=== PATIENT | male | born 1985 | race Caucasian/White ===

== ENCOUNTER 2016-12-06 10:16 | Emergency (ER) | payer BC, OTHER ==
[2016-12-06 10:19] VITALS: TEMP 97.4
[2016-12-06 10:38] VITALS: BP 111/61; PULSE 66
[2016-12-06] MEDS ORDERED: DIPH,PERTUS(ACELL)TETVAC-LF 0.5 ML VIAL IM ONE (11:02)
[2016-12-06] MEDS ORDERED: CIPROFLOXACIN HCL 500 MG TAB PO STA (11:02)
--- NOTE | 2016-12-06 11:05 | ED ---
General Adult HPI - General Chief complaint: Skin/Abscess/Foreign Body Stated complaint: STEPPED ON CHILD RAKE Time Seen by Provider: 12/06/16 10:32 Source: patient, RN notes reviewed, old records reviewed Mode of arrival: ambulatory Limitations: no limitations - History of Present Illness Initial comments: This is a 31-year-old male the ER for evaluation. Patient coming in for evaluation of foot injury. Patient stepped on a rake through shoe in the foot. Patient has minimal bleeding from site. For his left foot. No other injury - Related Data Previous Rx's Medication Instructions Recorded Ciprofloxacin HCl [Cipro] 500 mg PO Q12HR #20 tablet 12/06/16 Allergies Allergy/AdvReac Type Severity Reaction Status Date / Time amoxicillin Allergy Rash/Hives Verified 12/06/16 10:19 Review of Systems ROS Statement: Those systems with pertinent positive or pertinent negative responses have been documented in the HPI. ROS Other: All systems not noted in ROS Statement are negative. Past Medical History Past Medical History: No Reported History History of Any Multi-Drug Resistant Organisms: None Reported Past Surgical History: Hernia Repair Past Psychological History: No Psychological Hx Reported Smoking Status: Current every day smoker Past Alcohol Use History: Occasional Past Drug Use History: None Reported General Exam Limitations: no limitations General appearance: alert, in no apparent distress Head exam: Present: atraumatic, normocephalic, normal inspection Eye exam: Present: normal appearance, PERRL, EOMI. Absent: scleral icterus, conjunctival injection, periorbital swelling ENT exam: Present: normal exam, mucous membranes moist Neck exam: Present: normal inspection. Absent: tenderness, meningismus, lymphadenopathy Respiratory exam: Present: normal lung sounds bilaterally. Absent: respiratory distress, wheezes, rales, rhonchi, stridor Cardiovascular Exam: Present: regular rate, normal rhythm, normal heart sounds. Absent: systolic murmur, diastolic murmur, rubs, gallop, clicks GI/Abdominal exam: Present: soft, normal bowel sounds. Absent: distended, tenderness, guarding, rebound, rigid Extremities exam: Present: normal inspection, full ROM, normal capillary refill , other (Patient does have left foot puncture wound with piece of tissue still inside wound, minimal bleeding). Absent: tenderness, pedal edema, joint swelling, calf tenderness Back exam: Present: normal inspection Neurological exam: Present: alert, oriented X3, CN II-XII intact Psychiatric exam: Present: normal affect, normal mood Skin exam: Present: warm, dry, intact, normal color. 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 She'll be covered for possible pseudomonas as well as bacterial coverage. Wound is cleaned extensively irrigated. Patient can be discharged home Disposition Clinical Impression: Puncture wound of left foot Disposition: HOME SELF-CARE Condition: Good Instructions: Puncture Wound (ED) Prescriptions: Ciprofloxacin HCl [Cipro] 500 mg PO Q12HR #20 tablet Referrals: Hansel Walters MD [Primary Care Provider] - 1-2 days
[2016-12-06 11:29] VITALS: RESP 16
== END 2016-12-06 11:29 | disposition home or self-care (01) ==
LOC: EC 10:16
DX: S91.342A Puncture wound with foreign body, left foot, initial encounter (principal); F17.200 Nicotine dependence, unspecified, uncomplicated; Z23 Encounter for immunization; Z88.0 Allergy status to penicillin; W27.1XXA Contact with garden tool, initial encounter
CPT/HCPCS: 90471; 90715; 99283

== ENCOUNTER → 2018-06-03 | Outpatient (CLI) | payer OTHER ==
--- NOTE | 2018-06-03 17:09 | XR ---
EXAMINATION TYPE: XR shoulder complete RT DATE OF EXAM: 06/03/2018 COMPARISON: NONE HISTORY: Pain TECHNIQUE: Shoulder examined in 3 views FINDINGS: The humeral head articulates with the glenoid. The acromio-clavicular junction is normal. No acute fractures or dislocations are evident. A follow up study can be performed 7-10 days from acute trauma for continued pain. IMPRESSION: 1. Normal right Shoulder
== END | disposition home or self-care (01) ==
LOC: RADXRMAIN 16:17
PROVIDERS: ATTEND Family Medicine
DX: M25.511 Pain in right shoulder (principal)

== ENCOUNTER 2018-11-01 07:40 | Day surgery (SDC) | payer OTHER ==
[2018-10-27 15:49] VITALS: BMI 33.5
[~2018-11-01 07:40] MED LIST: LACTATED RINGERS 1,000 ML IV SCH
[2018-11-01 07:53] VITALS: TEMP 97.8
[2018-11-01] MEDS ORDERED: LACTATED RINGERS 1,000 ML IV ONE (07:53)
[2018-11-01] MEDS ORDERED: LIDOCAINE 1% 20 ML VIAL (10MG/ML) FOR IV START INTRADERMA ONE (07:53)
[2018-11-01] MEDS ORDERED: LIDOCAINE 1% INJ 10MG/ML (20 ML MDV) ONE (08:39)
[2018-11-01] MEDS ORDERED: PROPOFOL 10 MG/ML 20 ML VIAL IV ONE (08:39)
--- NOTE | 2018-11-01 08:44 | P.GSHP ---
History of Present Illness H&P Date: 11/01/18 Chief Complaint: Diarrhea This is a 32-year-old male has today for colonoscopy. Patient issues with diarrhea. Past Medical History Past Medical History: No Reported History Additional Past Medical History / Comment(s): HAS BEEN HAVING LOOSE STOOLS History of Any Multi-Drug Resistant Organisms: None Reported Past Surgical History: Hernia Repair Past Anesthesia/Blood Transfusion Reactions: No Reported Reaction Smoking Status: Current some day smoker - Past Family History Mother Family Medical History: No Reported History Medications and Allergies Home Medications Medication Instructions Recorded Confirmed Type No Known Home Medications 10/27/18 10/27/18 History Allergies Allergy/AdvReac Type Severity Reaction Status Date / Time amoxicillin Allergy Rash/Hives Verified 10/27/18 15:46 Surgical - Exam Vital Signs Temp Pulse Resp BP Pulse Ox 97.8 F 70 18 169/88 98 11/01/18 07:51 11/01/18 07:51 11/01/18 07:51 11/01/18 07:51 11/01/18 07:51 - General well developed, well nourished, no distress - Eyes PERRL - ENT normal pinna - Neck no masses - Respiratory normal expansion - Cardiovascular Rhythm: regular - Abdomen Abdomen: soft, non tender Assessment and Plan Assessment: Diarrhea. We'll perform colonoscopy.
--- NOTE | 2018-11-01 08:55 | P.OP ---
Date of Procedure: 11/01/18 Preoperative Diagnosis: Diarrhea Postoperative Diagnosis: Colonoscopy biopsy pending Procedure(s) Performed: Colonoscopy Anesthesia: COLE Surgeon: Clovis Muñiz Pathology: other (Sigmoid) Condition: stable Disposition: PACU Description of Procedure: The patient's placed on the endoscopy table in the lateral position. He received IV sedation. Digital rectal exam was performed which revealed no abnormalities. The prostate was symmetric without nodules. The possible colonoscope was then placed patient anus passed throughout the entire colon. The ileocecal valve was visualized. The cecum, ascending and transverse colon appeared normal. The descending and sigmoid colon appeared normal. A random biopsy; performed. Scope was then brought back the rectum and this appeared normal. Scope was withdrawn for patient.
[2018-11-01 09:18] VITALS: BP 131/72; PULSE 72; RESP 16
== END 2018-11-01 09:49 | disposition home or self-care (01) ==
LOC: ORWHC2ENDO 07:40
PROVIDERS: ATTEND Surgery
DX: R19.7 Diarrhea, unspecified (principal); F17.200 Nicotine dependence, unspecified, uncomplicated; Z98.890 Other specified postprocedural states; Z88.1 Allergy status to other antibiotic agents
CPT/HCPCS: 88305; 45380; J2001; J2704

== ENCOUNTER 2019-12-11 11:08 | Emergency (ER) | payer OTHER ==
[2019-12-11 11:28] VITALS: BP 160/97; PULSE 71; RESP 16; TEMP 98
[2019-12-11] MEDS ORDERED: ACET/COD 300 MG/30 MG STARTER PACK 6 TAB BTL PO STA (11:41)
--- NOTE | 2019-12-11 11:44 | ED ---
General Adult HPI - General Chief complaint: Dental/Oral Stated complaint: Tooth Ache Time Seen by Provider: 12/11/19 11:29 Source: patient, RN notes reviewed Mode of arrival: wheelchair Limitations: no limitations - History of Present Illness Initial comments: 34-year-old male presents to the emergency department for a chief complaint of dental pain. Patient states that he has had dental pain on and off for the past couple months. States that it worsened in the past few days. States it is the point that Motrin and Tylenol are not helping. Patient states he called his dentist but because of this pandemic they are not able to see him. He denies fevers. He denies neck stiffness. Denies difficulty opening his mouth. Face or neck. Patient does admit that hot and cold hurt his tooth.Patient has no other complaints at this time including shortness of breath, chest pain, abdominal pain, nausea or vomiting, headache, or visual changes. - Related Data Previous Rx's Medication Instructions Recorded Clindamycin [Cleocin] 450 mg PO Q8H 7 Days #63 cap 12/11/19 Allergies Allergy/AdvReac Type Severity Reaction Status Date / Time amoxicillin Allergy Rash/Hives Verified 12/11/19 11:27 Review of Systems ROS Statement: Those systems with pertinent positive or pertinent negative responses have been documented in the HPI. ROS Other: All systems not noted in ROS Statement are negative. Past Medical History Past Medical History: No Reported History Additional Past Medical History / Comment(s): HAS BEEN HAVING LOOSE STOOLS History of Any Multi-Drug Resistant Organisms: None Reported Past Surgical History: Hernia Repair Past Anesthesia/Blood Transfusion Reactions: No Reported Reaction Past Psychological History: No Psychological Hx Reported Smoking Status: Current some day smoker - Past Family History Mother Family Medical History: No Reported History General Exam Limitations: no limitations General appearance: alert, in no apparent distress Head exam: Present: atraumatic, normocephalic, normal inspection Eye exam: Present: normal appearance, PERRL, EOMI. Absent: scleral icterus, conjunctival injection, periorbital swelling ENT exam: Present: normal exam, mucous membranes moist. Absent: normal oropharynx (Patient has poor dentition noted. Complaining of pain to tooth 29. No significant tenderness. No abscess. No sublingual edema. No edema of the face or neck.) Neck exam: Present: normal inspection, full ROM. Absent: tenderness, meningismus, lymphadenopathy Respiratory exam: Present: normal lung sounds bilaterally. Absent: respiratory distress, wheezes, rales, rhonchi, stridor Cardiovascular Exam: Present: regular rate, normal rhythm, normal heart sounds. Absent: systolic murmur, diastolic murmur, rubs, gallop, clicks Course Vital Signs 12/11/19 11:23 Temperature 98.0 F Pulse Rate 71 Respiratory 16 Rate Blood Pressure 160/97 O2 Sat by Pulse 95 Oximetry Medical Decision Making - Medical Decision Making Patient was started on clindamycin and given penicillin ALLERGY. He was given Tylenol 3 in addition to a perception for Motrin. I discussed appropriate use of these. Patient will not drive or operate machinery while taking Tylenol 3. He will return for any worsening symptoms and will otherwise follow up with his dentist. Disposition Clinical Impression: Pain, dental Disposition: HOME SELF-CARE Condition: Good Instructions (If sedation given, give patient instructions): Toothache (ED) Additional Instructions: Please take antibiotic as directed. This was sent to [facility] pharmacy. Please follow-up with your dentist as soon as possible. Take Motrin for pain. If pain is severe take Tylenol 3. Do not drive or operate machinery while taking Tylenol 3. Return to the emergency department for any worsening symptoms. Prescriptions: Clindamycin [Cleocin] 450 mg PO Q8H 7 Days #63 cap Is patient prescribed a controlled substance at d/c from ED?: No Referrals: Hansel Walters MD [Primary Care Provider] - 1-2 days Time of Disposition: 11:42
== END 2019-12-11 11:46 | disposition home or self-care (01) ==
LOC: EC 11:08
DX: K08.89 Other specified disorders of teeth and supporting structures (principal); F17.200 Nicotine dependence, unspecified, uncomplicated; Z88.0 Allergy status to penicillin
CPT/HCPCS: 99282

== ENCOUNTER → 2020-01-31 | Outpatient (CLI) | payer OTHER ==
[2020-01-31 15:44] LABS: Basophils # (A) 0.1 k/uL (0-0.2); Basophils % (A) 1 %; Eosinophils # (A) 0.4 k/uL (0-0.7); Eosinophils % (A) 4 %; HCT 45.7 % (39.0-53.0); HGB 14.9 gm/dL (13.0-17.5); Lymphocytes # (A) 2.1 k/uL (1.0-4.8); Lymphocytes % (A) 23 %; MCH 30.2 pg (25.0-35.0); MCHC 32.5 g/dL (31.0-37.0); MCV 92.9 fL (80.0-100.0); Mean Platelet Volume 7.2; Monocytes # (A) 0.6 k/uL (0-1.0); Monocytes % (A) 6 %; Neutrophils # (A) 6.1 k/uL (1.3-7.7); Neutrophils % (A) 65 %; Platelet Count 255 k/uL (150-450); RBC 4.92 m/uL (4.30-5.90); RDW 12.9 % (11.5-15.5); WBC 9.3 k/uL (3.8-10.6)
== END | disposition home or self-care (01) ==
LOC: LABPAT 14:47
PROVIDERS: ATTEND Surgery
DX: Z01.818 Encounter for other preprocedural examination (principal); K42.0 Umbilical hernia with obstruction, without gangrene
CPT/HCPCS: 36415; 85025

== ENCOUNTER 2020-02-08 06:30 | Day surgery (SDC) | payer OTHER ==
[2020-02-06 12:31] VITALS: BMI 33.9
[~2020-02-08 06:30] MED LIST changes: +DEXAMETHASONE SOD PHOSPHATE 10 MG/ML 1 ML VIAL IV ONE; +HEPARIN SODIUM,PORCINE 5,000 UNIT/ML 1 ML VIAL SQ ONE; +HYDROmorphone 0.5 MG/0.5 ML SYRINGE IVP PRN; +LIDOCAINE 1% (10MG/ML) FOR IV START INTRADERMA PRN; +MIDAZOLAM 2 MG/2 ML VIAL IV PRN; +ONDANSETRON 4 MG/2 ML VIAL IVP ONE; +fentaNYL (PF) 50 MCG/ML 2 ML AMP IVP PRN
[2020-02-08] MEDS ORDERED: HEPARIN SODIUM,PORCINE 5,000 UNIT/ML 1 ML VIAL ONE (06:50)
[2020-02-08] MEDS ORDERED: ONDANSETRON 4 MG/2 ML VIAL ONE (06:50)
[2020-02-08] MEDS ORDERED: KETAMINE 10 MG/ML 20 ML VIAL ONE (07:55)
[2020-02-08] MEDS ORDERED: ROCURONIUM 10 MG/ML (5 ML VIAL) IV ONE (07:55)
[2020-02-08] MEDS ORDERED: fentaNYL (PF) 50 MCG/ML 2 ML AMP ONE (07:55)
[2020-02-08] MEDS ORDERED: HYDROmorphone (PF) 1 MG/ML ONE (07:55)
[2020-02-08] MEDS ORDERED: MIDAZOLAM 2 MG/2 ML VIAL ONE (07:55)
[2020-02-08] MEDS ORDERED: LIDOCAINE 1% INJ 10MG/ML (20 ML MDV) ONE (07:55)
[2020-02-08] MEDS ORDERED: PROPOFOL 10 MG/ML 20 ML VIAL IV ONE (07:55)
[2020-02-08] MEDS ORDERED: SUCCINYLCHOLINE CHLORIDE 100 MG/5 ML SYR IV ONE (07:55)
[2020-02-08] MEDS ORDERED: NEOSTIGMINE 1 MG/ML 10 ML VIAL ONE (07:55)
[2020-02-08] MEDS ORDERED: GLYCOPYRROLATE 0.2 MG/ML 2 ML VIAL ONE (07:55)
[2020-02-08] MEDS ORDERED: KETOROLAC 30 MG/ML 1 ML VIAL ONE (07:55)
[2020-02-08] MEDS ORDERED: BUPIVACAIN-EPI 0.25%-1:200,000 30 ML VIAL SQ ONE ×2 (08:18)
--- NOTE | 2020-02-08 08:59 | P.GSHP ---
History of Present Illness H&P Date: 02/08/20 Chief Complaint: Incarcerated umbilical hernia This a 34-year-old male who presents today for laparoscopic robotic-assisted repair of incarcerated we'll hernia. Patient will be tender masses umbilicus. Past Medical History Past Medical History: No Reported History Additional Past Medical History / Comment(s): IBS/DIARRHEA, OCCASIONAL BLOOD IN STOOL, UMBILICAL HERNIA. History of Any Multi-Drug Resistant Organisms: None Reported Past Surgical History: Hernia Repair Additional Past Surgical History / Comment(s): HERNIA REPAIR (CHILD-1991) Past Anesthesia/Blood Transfusion Reactions: No Reported Reaction Past Psychological History: No Psychological Hx Reported Past Alcohol Use History: Occasional Additional Past Alcohol Use History / Comment(s): SMOKES MAYBE 1-2 CIGARETTES MAYBE ONCE A MONTH, HX OF VAPING ALSO. Past Drug Use History: None Reported - Past Family History Mother Family Medical History: No Reported History Medications and Allergies Home Medications Medication Instructions Recorded Confirmed Type Ibuprofen [Advil] 400 mg PO ONCE PRN 02/06/20 02/08/20 History Allergies Allergy/AdvReac Type Severity Reaction Status Date / Time amoxicillin Allergy Rash/Hives Verified 02/08/20 06:54 Surgical - Exam Vital Signs Temp Pulse Resp BP Pulse Ox 97.8 F 73 18 151/77 96 02/08/20 06:56 02/08/20 06:56 02/08/20 06:56 02/08/20 06:56 02/08/20 06:56 - General well nourished, no distress - Eyes PERRL - ENT normal pinna - Neck no masses - Respiratory normal expansion - Cardiovascular Rhythm: regular - Abdomen Abdomen: soft, non tender Hernia: umbilical (3 cm umbilical hernia) Assessment and Plan Assessment: Impression buckle hernia. We'll perform laparoscopic robotic-assisted repair.
--- NOTE | 2020-02-08 09:01 | P.OP ---
Date of Procedure: 02/08/20 Preoperative Diagnosis: Incarcerated umbilical hernia Postoperative Diagnosis: Incarcerated umbilical hernia Procedure(s) Performed: Laparoscopic robotic repair of incarcerated umbilical hernia Partial omentectomy Anesthesia: CLOE Surgeon: Clovis Muñiz Estimated Blood Loss (ml): 10 Pathology: none sent Condition: stable Disposition: PACU Description of Procedure: The patient was placed on the operating table in the supine position. He received general anesthesia. His abdomen was prepped and draped usual fashion. Using a 5 mm optical trocar under direct visualization the peritoneal cavity was entered in the left upper quadrant. The abdomen was then insufflated. The laparoscope was placed back into the perineal cavity. Next a 8 mm robotic trocar was placed in the left lower quadrant and a 12 mm robotic trocar was placed in the left lateral position. The original 5 mm trocar was exchanged for a 8 mm robotic trocar. The patient's placed in the left side up position. And the patient was undocked the robot. The umbilical hernia was visualized. Using hook cautery the peritoneum over the umbilical hernia was excised. There was a small piece of incarcerated omentum. This was dissected free and then transected with the hook cautery. The small piece of omentum was removed and sent for disposal. The fascial opening was repaired using 0V LOC suture. Next a piece of 11 cm round ventral light ST mesh was placed into the. Cavity and secured with 2 OV lock suture. The patient was undocked the robot. The needles were retrieved. The fascia of the 12 mm trocar site was closed with 0 Ethibond suture. Skin was closed interrupted 3-0 Monocryl suture. Dermabond dressings was applied. Patient top procedure well and was sent to recovery room stable condition.
[2020-02-08 09:08] VITALS: TEMP 98.9
[2020-02-08 10:37] VITALS: BP 130/78; PULSE 75; RESP 16
== END 2020-02-08 10:51 | disposition home or self-care (01) ==
LOC: OR 06:30
PROVIDERS: ATTEND Surgery
DX: K42.0 Umbilical hernia with obstruction, without gangrene (principal); K58.0 Irritable bowel syndrome with diarrhea; F17.210 Nicotine dependence, cigarettes, uncomplicated; K21.9 Gastro-esophageal reflux disease without esophagitis; Z98.890 Other specified postprocedural states; Z88.0 Allergy status to penicillin
CPT/HCPCS: 49653; C1781; J2250; J1644; J1100; J2710; J0690; J2405; J2001; J3010; J1885; J1170; J0330; J2704